=== PATIENT | male | born 1980 | race American Indian/Alaskan Native ===

== ENCOUNTER 2024-11-07 08:50 | Day surgery (SDC) | payer OTHER, SELFPAY ==
[2024-11-06 11:59] VITALS: BMI 32.5
[2024-11-07] VITALS (12 sets, daily range): BP systolic 111–146; BP diastolic 67–95; PULSE 61–88; RESP 14–24; TEMP 36.4–36.8; O2SAT 96–100; BMI 31.0
[2024-11-07] MEDS: SODIUM CHLORIDE 0.9% 500 ML 500 ML 20 ML IV (10:49)
[2024-11-07] MEDS: DiphenhydrAMINE INJ 50 MG/ML VIAL 25 MG IV (10:50)
[2024-11-07] MEDS: fentaNYL CIT INJ 50 mCg/ML AMP 2ML (ASD USE ONLY) IV (10:54)
[2024-11-07] MEDS: MIDAZOLAM INJ 1 MG/ML VIAL 2 ML (ASD USE ONLY) 2 MG IV (10:54)
== END 2024-11-07 12:00 | disposition home or self-care (01) ==
PROVIDERS: PCP Nurse Practitioner Family; Referring Provider Specialist; Visit Provider Specialist
PROC: 0DBE8ZX Excision of Large Intestine, Via Natural or Artificial Opening Endoscopic, Diagnostic (ICD-10-PCS; CPT 45380; principal; 2024-11-07 09:30)
PROC: (CPT 43239; 2024-11-07 09:30)
DX: Z12.11 Encounter for screening for malignant neoplasm of colon (principal); K64.9 Unspecified hemorrhoids; Z85.048 Personal history of other malignant neoplasm of rectum, rectosigmoid junction, and anus
CPT/HCPCS: 45378; A4649; J1200; J2250; J3010; J7040